=== PATIENT | female | born 1985 | race Caucasian/White ===

== ENCOUNTER 2023-03-11 11:56 | Inpatient (IN) | payer SELFPAY ==
[2023-03-11] MEDS ORDERED: Promethazine HCl 25 MG in Sodium Chloride 0.9% 50 ML IVPB SCH (12:30)
[2023-03-11 12:35] LABS: Hematocrit 45.7 % (34.9-44.5); Hemoglobin 14.6 g/dL (12.0-15.5); Mean Corpuscular HGB CONC 31.9 g/dL (32.0-36.0); Mean Corpuscular Hemoglobin 30.8 pg (27.0-33.0); Mean Corpuscular Volume 96.4 fl (81.6-98.3); Mean Platelet Volume 9.2 fl (7.4-10.4); Platelet Count 530 10x3/uL (150-450); RBC Distribution Width 13.7 % (11.5-14.5); Red Blood Cell (RBC) Count 4.74 10x6/uL (3.90-5.03)
[2023-03-11 12:42] LABS: MDiff Complete? YES
[2023-03-11 12:51] LABS: BHCG - Serum Negative (NEGATIVE); Pregs Control Background? CLEAR/WHITE (CLR/WHITE); Pregs Control Bar Appear? YES (CONTROL BAR)
[2023-03-11 12:54] LABS: ALT (SGPT) 33 U/L (8-55); AST (SGOT) 44 U/L (5-34); Albumin 4.9 g/dL (3.5-5.0); Alkaline Phosphatase 67 U/L (40-110); BUN (Urea Nitrogen) 15 mg/dL (7.0-18.7); Band 2 % (5-11); Bilirubin, Total 0.2 mg/dL (0.2-1.2); CK (CPK) 42 U/L (29-168); Calc. Creatinine Clearance 0 mL/min (70-130); Chloride 110 mmol/L (98-107); Estimated GFR 54; Globulin 3.7 g/dL (2.4-3.5); Glucose 372 mg/dL (70-105); Lipase 26 U/L (8-78); Lymphocytes 12 % (21-51); Magnesium 2.2 mg/dL (1.6-2.6); Monocytes 2 % (0-10); Neutrophil 84 % (42-75); Protein, Total 8.6 g/dL (6.0-8.3); Sodium 138 mmol/L (136-145)
[2023-03-11 12:55] LABS: Platelet Adequacy Comment Appears Increased; RBC Morph Comment Within Normal Limits
[2023-03-11 13:26] LABS: Carbon Dioxide Less than 8 mmol/L (22-29)
[2023-03-11] MEDS ORDERED: D5 1/2 NS w/20 mEq KCL 1,000 ML ONE (13:38)
[2023-03-11] MEDS ORDERED: INSULIN REGULAR IN 0.9 % NACL 100 UNITS/100 ML BAG ONE (13:39)
[2023-03-11] MEDS ORDERED: Electrolyte Replacement Protocol 1 EACH IVPB PRN (13:47)
[2023-03-11] MEDS ORDERED: NS 0.9% w/ 20 MEQ KCL 1,000 ML IV PRN ×2 (13:47)
[2023-03-11] MEDS ORDERED: Dextrose 5 %-0.45 % NaCl 1,000 ML IV PRN (13:47)
[2023-03-11] MEDS ORDERED: Sodium Chloride 0.9% 1,000 ML IV PRN ×4 (13:47)
[2023-03-11] MEDS ORDERED: Acetaminophen 325 MG TAB PO PRN (13:47)
[2023-03-11] MEDS ORDERED: Dextrose 50% Abboject 50 ML SYRINGE SLOW IVP PRN (13:47)
[2023-03-11 13:54] LABS: Actual Bicarbonate (HCO3v) 6.8 mEq/L (22-28); Base Excess -25.1 mEq/L (-2 - +2); Chloride (VBG) 110 mmol/L (98-106); Hematocrit-VBG 47 % (36.0-47.0); Potassium (VBG) 4.96 mmol/L (3.70-5.30); Puncture Site Other Site; RapidComm Collect By CBN; Sodium 143.4 mmol/L (133-146); pH (venous) 6.933 (7.32-7.43)
[2023-03-11] MEDS ORDERED: INSULIN REGULAR IN 0.9 % NACL 100 UNITS in Premix Bag 1 BAG IVPB SCH (14:45)
[2023-03-11 14:50] LABS: Bilirubin Neg (Negative); Blood, Urine 25 (Negative); Clarity Clear (Clear); Glucose, Urine (Dipstick) >=1000 mg/dL (Negative); Ketone, Urine 150 mg/dL (Negative); Leukocyte Negative (Negative); Nitrite Negative (Negative); Protein, Urine (Dipstick) 30 mg/dl (Neg-Trace); Urobilinogen Normal mg/dL (Less than 2)
[2023-03-11 14:57] LABS: BUN (Urea Nitrogen) 13 mg/dL (7.0-18.7); Calc. Creatinine Clearance 0 mL/min (70-130); Calcium 8.8 mg/dL (7.8-10.44); Chloride 115 mmol/L (98-107); Estimated GFR 58; Glucose 274 mg/dL (70-105); Potassium 5.2 mmol/L (3.5-5.1); Sodium 139 mmol/L (136-145)
[2023-03-11 14:59] LABS: Carbon Dioxide Less than 8 mmol/L (22-29)
[2023-03-11 15:04] LABS: Troponin I Less than 0.010 ng/mL (< 0.028)
[2023-03-11 15:14] LABS: Bacteria/HPF Rare-Few HPF (None Seen); CAUTI Indications for Culture Pelvic or flank pain; RBC/HPF 0-3 HPF (0-3); Squamous Epithelial 0-3 HPF (0-3); Urine Culture Reflex No No; WBC/HPF 0-3 HPF (0-3)
[2023-03-11 15:38] LABS: Lactic Acid 2.4 mmol/L (0.5-2.2)
[2023-03-11] MEDS ORDERED: NOREPINEPHRINE 8 MG/250 ML-D5W 250 ML ONE (16:00)
[2023-03-11 17:55] LABS: Bilirubin Neg (Negative); Blood, Urine 50 (Negative); Clarity Clear (Clear); Glucose, Urine (Dipstick) >=1000 mg/dL (Negative); Ketone, Urine 150 mg/dL (Negative); Leukocyte Negative (Negative); Nitrite Negative (Negative); Protein, Urine (Dipstick) 30 mg/dl (Neg-Trace); Urobilinogen Normal mg/dL (Less than 2)
[2023-03-11 18:02] LABS: Bacteria/HPF Rare-Few HPF (None Seen); CAUTI Indications for Culture Pelvic or flank pain; Mucous/LPF Rare LPF (<2+); Squamous Epithelial 0-3 HPF (0-3); Transitional Epithelial 0-3 HPF (None Seen); WBC/HPF 0-3 HPF (0-3)
[2023-03-11 18:03] LABS: Urine Culture Reflex No No
[2023-03-11] MEDS: Ondansetron PF 4 MG/2 ML Vial IVP PRN (18:07)
[2023-03-11 18:13] LABS: BUN (Urea Nitrogen) 11 mg/dL (7.0-18.7); Calc. Creatinine Clearance 56 mL/min (70-130); Calcium 8.6 mg/dL (7.8-10.44); Chloride 115 mmol/L (98-107); Estimated GFR 68; Glucose 190 mg/dL (70-105); Sodium 137 mmol/L (136-145)
[2023-03-11 18:20] LABS: Carbon Dioxide Less than 8 mmol/L (22-29); Potassium 4.8 mmol/L (3.5-5.1)
[2023-03-11] MEDS: D5 1/2 NS w/20 mEq KCL 1,000 ML IV PRN ×2 (19:45→23:40)
[2023-03-11 21:27] LABS: Anion Gap 16 mmol/L (10-20); BUN (Urea Nitrogen) 8 mg/dL (7.0-18.7); Calc. Creatinine Clearance 65 mL/min (70-130); Calcium 8.3 mg/dL (7.8-10.44); Chloride 113 mmol/L (98-107); Estimated GFR 81; Glucose 188 mg/dL (70-105); Potassium 3.8 mmol/L (3.5-5.1); Sodium 134 mmol/L (136-145)
[2023-03-11 21:30] LABS: Troponin I Less than 0.010 ng/mL (< 0.028)
[2023-03-11 21:34] LABS: Carbon Dioxide 9 mmol/L (22-29)
[2023-03-11] MEDS: Famotidine/PF 20 mg/2ml Vial SLOW IVP SCH (21:55)
[2023-03-12] MEDS: D5 1/2 NS w/20 mEq KCL 1,000 ML IV PRN (03:37)
[2023-03-12 03:54] LABS: #Monocytes 1.3 10x3/uL (0.0-1.1); #Neutrophils 12.9 10x3/uL (1.5-8.4); %Basophils 0.2 % (0.0-2.0); %Eosinophils 0.1 % (0.0-6.0); %Lymphocytes 17.7 % (18.0-47.0); %Monocytes 7.3 % (0.0-10.0); %Neutrophils 74.3 % (40.0-75.0); Hematocrit 36.1 % (34.9-44.5); Mean Corpuscular HGB CONC 33.2 g/dL (32.0-36.0); Mean Corpuscular Hemoglobin 30.4 pg (27.0-33.0); Mean Corpuscular Volume 91.4 fl (81.6-98.3); Mean Platelet Volume 9.1 fl (7.4-10.4); Platelet Count 437 10x3/uL (150-450); RBC Distribution Width 13.8 % (11.5-14.5); Red Blood Cell (RBC) Count 3.95 10x6/uL (3.90-5.03); White Blood Cell (WBC) Count 17.4 10x3/uL (3.5-10.5)
[2023-03-12 03:59] LABS: Actual Bicarbonate (HCO3v) 12.6 mEq/L (22-28); Base Excess -10.9 mEq/L (-2 - +2); Calcium, Ionized (venous) 1.16 mmol/L (1.16-1.32); Chloride (VBG) 110 mmol/L (98-106); Hematocrit-VBG 38 % (36.0-47.0); Hemoglobin (Hb) 12.9 g/dL (11.7-15.5); Potassium (VBG) 3.57 mmol/L (3.70-5.30); Puncture Site Other Site; RapidComm Collect By CBL; Sodium 133.1 mmol/L (133-146)
[2023-03-12 04:06] LABS: Anion Gap 12 mmol/L (10-20); BUN (Urea Nitrogen) 6 mg/dL (7.0-18.7); Calc. Creatinine Clearance 74 mL/min (70-130); Calcium 8.3 mg/dL (7.8-10.44); Carbon Dioxide 11 mmol/L (22-29); Cardiac Risk 4.4 (Less than 4.5); Chloride 113 mmol/L (98-107); Cholesterol 184 mg/dl (< 200 Desired); Estimated GFR 94; Glucose 154 mg/dL (70-105); HDL Cholesterol 42 mg/dL (>60 Neg Risk); LDL Cholesterol, Calculated 122 mg/dL; Magnesium 1.7 mg/dL (1.6-2.6); Potassium 3.4 mmol/L (3.5-5.1); Sodium 133 mmol/L (136-145); Triglycerides 100 mg/dL (Less than 150)
[2023-03-12 04:09] LABS: ALT (SGPT) 20 U/L (8-55); AST (SGOT) 22 U/L (5-34); Albumin 3.7 g/dL (3.5-5.0); Alkaline Phosphatase 43 U/L (40-110); Bilirubin, Direct 0.1 mg/dL (0.1-0.3); Bilirubin, Total 0.3 mg/dL (0.2-1.2); Protein, Total 6.1 g/dL (6.0-8.3)
[2023-03-12 04:15] LABS: Troponin I Less than 0.010 ng/mL (< 0.028)
[2023-03-12] MEDS ORDERED: Magnesium 2 GM/50 ML(in water) 2 GM in Premix Bag 1 BAG IVPB SCH (04:15)
[2023-03-12] MEDS: Potassium Chloride 20 MEQ in Premix Bag 1 BAG IVPB SCH ×2 (04:37→07:17)
[2023-03-12] MEDS ORDERED: Dextrose 5% in Water 1,000 ML IV PRN (07:21)
[2023-03-12] MEDS ORDERED: Glucagon 1 MG/ML KIT IM PRN (07:21)
[2023-03-12] MEDS ORDERED: Dextrose 50% Abboject 50 ML SYRINGE SLOW IVP PRN (07:21)
[2023-03-12] MEDS ORDERED: HumaLOG 300 UNITS/3 ML VIAL SC PRN ×2 (07:21→16:45)
[2023-03-12] MEDS: Famotidine/PF 20 mg/2ml Vial SLOW IVP SCH (07:50)
[2023-03-12 08:17] VITALS: BMI 20.5
[2023-03-12 08:19] LABS: Free T4 (Free Thyroxine) 0.96 ng/dL (0.70-1.48)
[2023-03-12] MEDS ORDERED: HumuLIN 70/30 (300 UNITS/3 ML VIAL) SC SCH (09:00)
[2023-03-12] MEDS ORDERED: Insulin NPH Human Isophane 100 UNITS/ML (10 ML VIAL) SC SCH ×2 (09:00→21:00)
[2023-03-12] MEDS ORDERED: Potassium Chloride 20 MEQ TAB PO SCH (09:15)
[2023-03-12] MEDS: Ondansetron PF 4 MG/2 ML Vial IVP PRN ×2 (09:35→16:09)
[2023-03-12] MEDS: HumaLOG 300 UNITS/3 ML VIAL SC PRN ×2 (12:09→16:09)
[2023-03-12 14:21] LABS: Hemoglobin A1c 12.5 % (4.0-6.0)
[2023-03-12] MEDS ORDERED: Lactated Ringer's 1,000 ML IV SCH (16:30)
[2023-03-12] MEDS: Famotidine 20 MG TAB PO SCH (21:32)
[2023-03-13 03:34] LABS: #Basophils 0.1 10x3/uL (0.0-0.2); #Eosinphils 0.1 10x3/uL (0.0-0.5); #Monocytes 0.7 10x3/uL (0.0-1.1); #Neutrophils 4.6 10x3/uL (1.5-8.4); %Basophils 0.7 % (0.0-2.0); %Lymphocytes 36.3 % (18.0-47.0); %Monocytes 8.3 % (0.0-10.0); %Neutrophils 53.5 % (40.0-75.0); Hematocrit 36.7 % (34.9-44.5); Hemoglobin 12.5 g/dL (12.0-15.5); Mean Corpuscular HGB CONC 34.1 g/dL (32.0-36.0); Mean Corpuscular Hemoglobin 30.3 pg (27.0-33.0); Mean Corpuscular Volume 89.1 fl (81.6-98.3); Mean Platelet Volume 8.9 fl (7.4-10.4); Platelet Count 349 10x3/uL (150-450); Red Blood Cell (RBC) Count 4.12 10x6/uL (3.90-5.03); White Blood Cell (WBC) Count 8.6 10x3/uL (3.5-10.5)
[2023-03-13 03:42] LABS: Anion Gap 11 mmol/L (10-20); BUN (Urea Nitrogen) 4 mg/dL (7.0-18.7); Calc. Creatinine Clearance 104 mL/min (70-130); Calcium 8.3 mg/dL (7.8-10.44); Carbon Dioxide 19 mmol/L (22-29); Chloride 111 mmol/L (98-107); Estimated GFR 117; Glucose 74 mg/dL (70-105); Magnesium 1.8 mg/dL (1.6-2.6); Potassium 3.1 mmol/L (3.5-5.1); Sodium 138 mmol/L (136-145)
[2023-03-13] MEDS ORDERED: Magnesium 2 GM/50 ML(in water) 2 GM in Premix Bag 1 BAG IVPB SCH (03:45)
[2023-03-13] MEDS ORDERED: Potassium Chloride 20 MEQ TAB PO SCH (03:45)
[2023-03-13] MEDS: Famotidine 20 MG TAB PO SCH (07:47)
[2023-03-13] MEDS ORDERED: Insulin NPH Human Isophane 100 UNITS/ML (10 ML VIAL) SC SCH (09:00)
[2023-03-13 09:06] VITALS: BP 116/72; TEMP 98.4
== END 2023-03-13 10:39 | disposition home or self-care (01) | DRG 638 ==
LOC: SUATTDRO 11:56 → CSHERS 11:56 → CSHICU 13:47
PROVIDERS: ADMIT Family Medicine; ATTEND Family Medicine
DX: E10.10 Type 1 diabetes mellitus with ketoacidosis without coma (principal); N17.9 Acute kidney failure, unspecified; F17.210 Nicotine dependence, cigarettes, uncomplicated; F10.90 Alcohol use, unspecified, uncomplicated; D72.829 Elevated white blood cell count, unspecified; F12.10 Cannabis abuse, uncomplicated; Z79.4 Long term (current) use of insulin; Z98.51 Tubal ligation status; Z71.89 Other specified counseling
CPT/HCPCS: 36415; 36416; 71045; 80048; 80053; 80061; 80076; 81001; 82010; 82550; 82805; 83036; 83605; 83690; 83735; 83930; 84439; 84443; 84481; 84484; 84703; 85025; 93005; J1650; J1815; J2405; J2550; J3475; J3480; J7120; J7999; S0028

== ENCOUNTER 2023-04-14 11:16 | Inpatient (IN) | payer SELFPAY ==
[2023-04-14] MEDS ORDERED: Ondansetron PF 4 MG/2 ML Vial ONE (12:00)
[2023-04-14 12:32] LABS: Actual Bicarbonate (HCO3v) 3.3 mEq/L (22-28); Base Excess -31.2 mEq/L (-2 - +2); Calcium, Ionized (venous) 1.39 mmol/L (1.16-1.32); Chloride (VBG) 104 mmol/L (98-106); Hematocrit-VBG 47 % (36.0-47.0); Potassium (VBG) 6.15 mmol/L (3.70-5.30); Puncture Site Other Site; Sodium 137.2 mmol/L (133-146)
[2023-04-14 12:33] LABS: Hemoglobin 15.7 g/dL (12.0-15.5); Mean Corpuscular HGB CONC 30.8 g/dL (32.0-36.0); Mean Corpuscular Hemoglobin 31.2 pg (27.0-33.0); Mean Corpuscular Volume 101.4 fl (81.6-98.3); Mean Platelet Volume 10.1 fl (7.4-10.4); Platelet Count 433 10x3/uL (150-450); RBC Distribution Width 13.4 % (11.5-14.5); Red Blood Cell (RBC) Count 5.03 10x6/uL (3.90-5.03); White Blood Cell (WBC) Count 31.5 10x3/uL (3.5-10.5)
[2023-04-14] MEDS ORDERED: Sodium Bicarb 50 MEQ/50 ML Abboject 8.4% SYRINGE ONE (12:39)
[2023-04-14] MEDS ORDERED: Insulin Regular 300 UNITS/3 ML VIAL ONE (12:39)
[2023-04-14 12:42] LABS: Acetaminophen Less than 10 mcg/mL (10.0-30.0); Alcohol Less than 10.0 mg/dL (Less than 10); Salicylate Less than 8.0 mg/dL (15.0-30.0)
[2023-04-14 12:45] LABS: BHCG - Serum Negative (NEGATIVE); Pregs Control Background? CLEAR/WHITE (CLR/WHITE); Pregs Control Bar Appear? YES (CONTROL BAR)
[2023-04-14 12:49] LABS: Troponin I Less than 0.010 ng/mL (< 0.028)
[2023-04-14 12:49] LABS: ALT (SGPT) 33 U/L (8-55); AST (SGOT) 40 U/L (5-34); Albumin 5.1 g/dL (3.5-5.0); Alkaline Phosphatase 72 U/L (40-110); BUN (Urea Nitrogen) 16 mg/dL (7.0-18.7); Bilirubin, Total 0.2 mg/dL (0.2-1.2); Calc. Creatinine Clearance 0 mL/min (70-130); Calcium 9.5 mg/dL (7.8-10.44); Chloride 104 mmol/L (98-107); Estimated GFR 38; Globulin 3.2 g/dL (2.4-3.5); Lipase 31 U/L (8-78); Protein, Total 8.3 g/dL (6.0-8.3); Sodium 133 mmol/L (136-145)
[2023-04-14 12:53] LABS: Carbon Dioxide Less than 8 mmol/L (22-29); Glucose 589 mg/dL (70-105); Potassium 6.3 mmol/L (3.5-5.1)
[2023-04-14 12:59] LABS: MDiff Complete? YES
[2023-04-14 13:02] LABS: Lymphocytes 7 % (21-51); Monocytes 6 % (0-10); Myelocyte 1 % (0-0); Neutrophil 86 % (42-75)
[2023-04-14 13:05] LABS: Platelet Adequacy Comment Appears Adequate; Poikilocytosis SLIGHT = 6-15 cells (100X) (0-5/hpf); Vacuoles SLIGHT
[2023-04-14] MEDS ORDERED: INSULIN REGULAR IN 0.9 % NACL 100 UNITS/100 ML BAG ONE (13:28)
[2023-04-14] MEDS ORDERED: Sodium Chloride 0.9% 1,000 ML IV PRN ×8 (14:45→15:45)
[2023-04-14] MEDS ORDERED: ADD ELECTROLYTE REPLACEMENT SET TO PROFILE PO SCH (14:45)
[2023-04-14] MEDS ORDERED: Dextrose 5% in Water 1,000 ML IV PRN (14:45)
[2023-04-14] MEDS ORDERED: D5 1/2 NS w/20 mEq KCL 1,000 ML IV PRN (14:45)
[2023-04-14] MEDS ORDERED: Dextrose 50% Abboject 50 ML SYRINGE SLOW IVP PRN ×2 (14:45→15:45)
[2023-04-14] MEDS ORDERED: Glucagon 1 MG/ML KIT IM PRN (14:45)
[2023-04-14] MEDS ORDERED: NS 0.9% w/ 20 MEQ KCL 1,000 ML/1,000 ML BAG IV PRN ×2 (14:45)
[2023-04-14] MEDS ORDERED: HUMULIN R 100 UNITS in Sodium Chloride 0.9% 100 ML IVPB SCH ×2 (14:45→15:45)
[2023-04-14] MEDS ORDERED: Electrolyte Replacement Protocol FS PRN (14:45)
[2023-04-14] MEDS ORDERED: Dextrose 5 %-0.45 % NaCl 1,000 ML IV PRN ×2 (14:45→15:45)
[2023-04-14 15:25] LABS: Lactic Acid 3.8 mmol/L (0.5-2.2)
[2023-04-14] MEDS ORDERED: Acetaminophen 500 MG TAB PO PRN (15:45)
[2023-04-14] MEDS ORDERED: Ondansetron ODT 4 MG TAB PO PRN (15:45)
[2023-04-14] MEDS ORDERED: Electrolyte Replacement Protocol 1 EACH IVPB SCH (15:45)
[2023-04-14] MEDS ORDERED: NS 0.9% w/ 20 MEQ KCL 1,000 ML IV PRN ×2 (15:45)
[2023-04-14 16:34] LABS: BUN (Urea Nitrogen) 13 mg/dL (7.0-18.7); Calc. Creatinine Clearance 53 mL/min (70-130); Calcium 7.9 mg/dL (7.8-10.44); Carbon Dioxide Less than 8 mmol/L (22-29); Chloride 112 mmol/L (98-107); Estimated GFR 63; Glucose 196 mg/dL (70-105); Potassium 3.9 mmol/L (3.5-5.1); Sodium 135 mmol/L (136-145)
[2023-04-14] MEDS: D5 1/2 NS w/20 mEq KCL 1,000 ML IV PRN ×2 (17:31→21:32)
[2023-04-14] MEDS: Ondansetron PF 4 MG/2 ML Vial IVP PRN (17:41)
[2023-04-14] MEDS ORDERED: SODIUM BICARBONATE IV SCH (17:45)
[2023-04-14] MEDS ORDERED: SODIUM CHLORIDE 0.9% IV SCH (17:45)
[2023-04-14 19:59] LABS: Anion Gap 13 mmol/L (10-20); BUN (Urea Nitrogen) 9 mg/dL (7.0-18.7); Calc. Creatinine Clearance 65 mL/min (70-130); Calcium 7.9 mg/dL (7.8-10.44); Carbon Dioxide 11 mmol/L (22-29); Chloride 110 mmol/L (98-107); Estimated GFR 81; Glucose 193 mg/dL (70-105); Potassium 3.2 mmol/L (3.5-5.1); Sodium 131 mmol/L (136-145)
[2023-04-14] MEDS: Famotidine/PF 20 mg/2ml Vial SLOW IVP SCH (20:10)
[2023-04-15 00:02] LABS: Anion Gap 10 mmol/L (10-20); BUN (Urea Nitrogen) 8 mg/dL (7.0-18.7); Calc. Creatinine Clearance 76 mL/min (70-130); Calcium 7.9 mg/dL (7.8-10.44); Carbon Dioxide 16 mmol/L (22-29); Chloride 110 mmol/L (98-107); Estimated GFR 96; Glucose 161 mg/dL (70-105); Potassium 3.1 mmol/L (3.5-5.1); Sodium 133 mmol/L (136-145)
[2023-04-15] MEDS: D5 1/2 NS w/20 mEq KCL 1,000 ML IV SCH ×2 (01:09→02:22)
[2023-04-15] MEDS ORDERED: INSULIN REGULAR IN 0.9 % NACL 100 UNITS in Premix Bag 1 BAG IVPB SCH (01:15)
[2023-04-15] MEDS ORDERED: Potassium Chloride 20 MEQ TAB PO SCH ×2 (01:30→04:30)
[2023-04-15 03:33] LABS: Hematocrit 32.8 % (34.9-44.5); Hemoglobin 11.3 g/dL (12.0-15.5); Mean Corpuscular HGB CONC 34.5 g/dL (32.0-36.0); Mean Corpuscular Hemoglobin 31.2 pg (27.0-33.0); Mean Corpuscular Volume 90.6 fl (81.6-98.3); Mean Platelet Volume 9.5 fl (7.4-10.4); Platelet Count 266 10x3/uL (150-450); Red Blood Cell (RBC) Count 3.62 10x6/uL (3.90-5.03); White Blood Cell (WBC) Count 19.9 10x3/uL (3.5-10.5)
[2023-04-15 03:36] LABS: Anion Gap 9 mmol/L (10-20); BUN (Urea Nitrogen) 7 mg/dL (7.0-18.7); Calc. Creatinine Clearance 79 mL/min (70-130); Carbon Dioxide 17 mmol/L (22-29); Chloride 111 mmol/L (98-107); Estimated GFR 101; Glucose 173 mg/dL (70-105); Potassium 3.5 mmol/L (3.5-5.1); Sodium 133 mmol/L (136-145)
[2023-04-15] MEDS ORDERED: Glucagon 1 MG/ML KIT IM PRN (04:15)
[2023-04-15] MEDS ORDERED: Dextrose 50% Abboject 50 ML SYRINGE IVP PRN (04:15)
[2023-04-15] MEDS ORDERED: Dextrose 5% in Water 1,000 ML IV PRN (04:15)
[2023-04-15 04:23] VITALS: BMI 20.1
[2023-04-15] MEDS ORDERED: Lantus 1000 UNITS/10 ML VIAL SC SCH ×2 (04:30→21:00)
[2023-04-15] MEDS ORDERED: Magnesium 2 GM/50 ML(in water) 2 GM in Premix Bag 1 BAG IVPB SCH (06:00)
[2023-04-15] MEDS: Famotidine/PF 20 mg/2ml Vial SLOW IVP SCH (07:30)
[2023-04-15] MEDS: Ondansetron PF 4 MG/2 ML Vial IVP PRN ×2 (07:37→13:05)
[2023-04-15 08:29] LABS: Anion Gap 15 mmol/L (10-20); BUN (Urea Nitrogen) 6 mg/dL (7.0-18.7); Calc. Creatinine Clearance 84 mL/min (70-130); Calcium 8.2 mg/dL (7.8-10.44); Carbon Dioxide 13 mmol/L (22-29); Chloride 109 mmol/L (98-107); Estimated GFR 101; Glucose 122 mg/dL (70-105); Potassium 3.9 mmol/L (3.5-5.1); Sodium 133 mmol/L (136-145)
[2023-04-15 10:33] LABS: Potassium 4.6 mmol/L (3.5-5.1)
[2023-04-15] MEDS: HumaLOG 300 UNITS/3 ML VIAL SC PRN ×3 (11:12→21:27)
[2023-04-15] MEDS ORDERED: Electrolyte Replacement Protocol FS PRN (12:15)
[2023-04-15] MEDS: Famotidine 20 MG TAB PO SCH (21:24)
[2023-04-16] MEDS: HumaLOG 300 UNITS/3 ML VIAL SC PRN (00:31)
[2023-04-16 02:44] LABS: #Basophils 0.1 10x3/uL (0.0-0.2); #Eosinphils 0.1 10x3/uL (0.0-0.5); #Monocytes 0.9 10x3/uL (0.0-1.1); #Neutrophils 6.2 10x3/uL (1.5-8.4); %Basophils 0.7 % (0.0-2.0); %Eosinophils 0.7 % (0.0-6.0); %Lymphocytes 31.5 % (18.0-47.0); %Monocytes 8.2 % (0.0-10.0); %Neutrophils 58.6 % (40.0-75.0); Hematocrit 34.6 % (34.9-44.5); Mean Corpuscular HGB CONC 34.7 g/dL (32.0-36.0); Mean Corpuscular Hemoglobin 31.1 pg (27.0-33.0); Mean Corpuscular Volume 89.6 fl (81.6-98.3); Platelet Count 261 10x3/uL (150-450); RBC Distribution Width 13.5 % (11.5-14.5); Red Blood Cell (RBC) Count 3.86 10x6/uL (3.90-5.03); White Blood Cell (WBC) Count 10.6 10x3/uL (3.5-10.5)
[2023-04-16 02:56] LABS: Phosphorus 1.6 mg/dL (2.3-4.7)
[2023-04-16 02:59] LABS: Anion Gap 10 mmol/L (10-20); BUN (Urea Nitrogen) 6 mg/dL (7.0-18.7); Calc. Creatinine Clearance 96 mL/min (70-130); Calcium 8.7 mg/dL (7.8-10.44); Carbon Dioxide 25 mmol/L (22-29); Chloride 104 mmol/L (98-107); Estimated GFR 116; Glucose 148 mg/dL (70-105); Magnesium 1.8 mg/dL (1.6-2.6); Potassium 2.9 mmol/L (3.5-5.1); Sodium 136 mmol/L (136-145)
[2023-04-16 04:02] LABS: Magnesium 1.9 mg/dL (1.6-2.6); Phosphorus 2.5 mg/dL (2.3-4.7)
[2023-04-16] MEDS: PHOS-NAK 1 PKT PACK PO SCH ×2 (05:42→08:46)
[2023-04-16] MEDS: Potassium Chloride 20 MEQ TAB PO SCH ×2 (05:43→08:46)
[2023-04-16] MEDS ORDERED: Magnesium 2 GM/50 ML(in water) 2 GM in Premix Bag 1 BAG IVPB SCH (06:00)
[2023-04-16] MEDS ORDERED: Potassium Chloride 20 MEQ TAB PO SCH ×2 (06:00→12:00)
[2023-04-16] MEDS: Ondansetron PF 4 MG/2 ML Vial IVP PRN (06:24)
[2023-04-16] MEDS ORDERED: Lantus 1000 UNITS/10 ML VIAL SC SCH (08:00)
[2023-04-16] MEDS: Famotidine 20 MG TAB PO SCH (08:46)
[2023-04-16 14:18] VITALS: BP 112/69; TEMP 99.8
== END 2023-04-16 12:19 | disposition home or self-care (01) | DRG 638 ==
LOC: CSHERS 11:16 → CSHIMCU 13:12 → CSHTELE 04-15 17:33
PROVIDERS: ADMIT Family Medicine; ATTEND Family Medicine
DX: E10.10 Type 1 diabetes mellitus with ketoacidosis without coma (principal); N17.9 Acute kidney failure, unspecified; E87.5 Hyperkalemia; E86.0 Dehydration; D72.828 Other elevated white blood cell count; F12.10 Cannabis abuse, uncomplicated; Z98.51 Tubal ligation status
CPT/HCPCS: 36415; 36416; 71045; 80048; 80053; 80307; 82010; 82805; 83605; 83690; 83735; 84100; 84484; 84703; 85025; 85027; 87086; 93005; 94760; 94762; J1815; J2405; J3475; J3480; J7042; J7050; Q0162; S0028

== ENCOUNTER 2023-06-08 07:48 | Inpatient (IN) | payer SELFPAY ==
[2023-06-08] MEDS ORDERED: Ondansetron PF 4 MG/2 ML Vial ONE (08:23)
[2023-06-08] MEDS ORDERED: Haloperidol Lactate 5 MG/ML VIAL ONE (08:38)
[2023-06-08 09:22] LABS: #Basophils 0.2 10x3/uL (0.0-0.2); #Monocytes 0.9 10x3/uL (0.0-1.1); #Neutrophils 17.2 10x3/uL (1.5-8.4); %Basophils 0.9 % (0.0-2.0); %Lymphocytes 15.2 % (18.0-47.0); %Monocytes 4.2 % (0.0-10.0); %Neutrophils 78.6 % (40.0-75.0); Hematocrit 48.6 % (34.9-44.5); Hemoglobin 15.5 g/dL (12.0-15.5); Mean Corpuscular HGB CONC 31.9 g/dL (32.0-36.0); Mean Corpuscular Hemoglobin 30.9 pg (27.0-33.0); Mean Platelet Volume 10.6 fl (7.4-10.4); Platelet Count 439 10x3/uL (150-450); RBC Distribution Width 13.1 % (11.5-14.5); Red Blood Cell (RBC) Count 5.01 10x6/uL (3.90-5.03); White Blood Cell (WBC) Count 21.8 10x3/uL (3.5-10.5)
[2023-06-08 09:31] LABS: ALT (SGPT) 33 U/L (8-55); AST (SGOT) 42 U/L (5-34); Albumin 4.9 g/dL (3.5-5.0); Alkaline Phosphatase 54 U/L (40-110); BUN (Urea Nitrogen) 12 mg/dL (7.0-18.7); Bilirubin, Total 0.2 mg/dL (0.2-1.2); Calc. Creatinine Clearance 0 mL/min (70-130); Calcium 9.6 mg/dL (7.8-10.44); Chloride 105 mmol/L (98-107); Estimated GFR 56; Globulin 3.8 g/dL (2.4-3.5); Lipase 25 U/L (8-78); Potassium 4.4 mmol/L (3.5-5.1); Protein, Total 8.7 g/dL (6.0-8.3); Sodium 134 mmol/L (136-145)
[2023-06-08 09:34] LABS: Carbon Dioxide Less than 8 mmol/L (22-29); Glucose 431 mg/dL (70-105)
[2023-06-08] MEDS ORDERED: Insulin Regular 300 UNITS/3 ML VIAL ONE (09:49)
[2023-06-08] MEDS ORDERED: INSULIN REGULAR IN 0.9 % NACL 100 UNITS/100 ML BAG ONE (09:49)
[2023-06-08 09:58] LABS: Bilirubin Neg (Negative); Blood, Urine 50 (Negative); Clarity Clear (Clear); Glucose, Urine (Dipstick) >=1000 mg/dL (Negative); Ketone, Urine 150 mg/dL (Negative); Leukocyte Negative (Negative); Nitrite Negative (Negative); Protein, Urine (Dipstick) 30 mg/dl (Neg-Trace); Specific Gravity, Urine 1.025 (1.005-1.030); Urobilinogen Normal mg/dL (Less than 2)
[2023-06-08 09:59] LABS: Phosphorus 4.9 mg/dL (2.3-4.7)
[2023-06-08] MEDS ORDERED: Morphine 4 MG/ML VIAL ONE (10:22)
[2023-06-08 10:23] LABS: Bacteria/HPF 1+ HPF (None Seen); CAUTI Indications for Culture Alt mental st,lethar; RBC/HPF 0-3 HPF (0-3); Renal Epithelial 0-3 HPF (None Seen); Squamous Epithelial 0-3 HPF (0-3); Transitional Epithelial 0-3 HPF (None Seen); WBC/HPF 0-3 HPF (0-3)
[2023-06-08 10:24] LABS: Actual Bicarbonate (HCO3v) 5.2 mEq/L (22-28); Base Excess -26.5 mEq/L (-2 - +2); Calcium, Ionized (venous) 1.19 mmol/L (1.16-1.32); Chloride (VBG) 104 mmol/L (98-106); Hematocrit-VBG 46 % (36.0-47.0); Hemoglobin (Hb) 15.6 g/dL (11.7-15.5); Potassium (VBG) 4.36 mmol/L (3.70-5.30); Puncture Site Other Site; Sodium 138 mmol/L (133-146); pH (venous) 6.922 (7.32-7.43)
[2023-06-08 10:25] LABS: Epithelial Cast 0-3 LPF (None Seen); Urine Culture Reflex No No
[2023-06-08] MEDS ORDERED: Sodium Bicarb 50 MEQ/50 ML Abboject 8.4% SYRINGE ONE (10:34)
[2023-06-08 10:44] LABS: Acetaminophen Less than 10 mcg/mL (10.0-30.0); Alcohol Less than 10.0 mg/dL (Less than 10); Salicylate Less than 8.0 mg/dL (15.0-30.0)
[2023-06-08 11:18] LABS: Amphetamine Not Detected (NotDetected); Barbiturates Screen Not Detected (NotDetected); Benzodiazepine Screen Not Detected (NotDetected); Cocaine Metabolite Screen Not Detected (NotDetected); Methadone Not Detected (NotDetected); Methamphetamine Not Detected (NotDetected); Opiate Screen Not Detected (NotDetected); Oxycodone Screen Not Detected (NotDetected); Phencyclidine (PCP) Not Detected (NotDetected); THC/Cannabinoid Screen Detected (NotDetected); Tricyclic Screen Not Detected (NotDetected)
[2023-06-08] MEDS ORDERED: NS 0.9% w/ 20 MEQ KCL 1,000 ML IV PRN ×2 (11:25)
[2023-06-08] MEDS ORDERED: D5 1/2 NS w/20 mEq KCL 1,000 ML IV PRN (11:25)
[2023-06-08] MEDS ORDERED: Dextrose 5 %-0.45 % NaCl 1,000 ML IV PRN (11:25)
[2023-06-08] MEDS ORDERED: Electrolyte Replacement Protocol 1 EACH IVPB SCH (11:25)
[2023-06-08] MEDS ORDERED: Sodium Chloride 0.9% 1,000 ML IV PRN ×4 (11:25)
[2023-06-08] MEDS ORDERED: Dextrose 50% Abboject 50 ML SYRINGE SLOW IVP PRN ×2 (11:25→17:11)
[2023-06-08] MEDS ORDERED: Acetaminophen 325 MG TAB PO PRN (11:28)
[2023-06-08] MEDS ORDERED: Calcium Carbonate 500 MG ChewTAB PO PRN (11:28)
[2023-06-08] MEDS ORDERED: Ondansetron PF 4 MG/2 ML Vial IVP PRN (11:28)
[2023-06-08] MEDS ORDERED: Senokot S 8.6-50 MG TAB PO PRN (11:28)
[2023-06-08] MEDS ORDERED: Ondansetron ODT 4 MG TAB PO PRN (11:28)
[2023-06-08] MEDS ORDERED: Dicyclomine 10 MG CAP PO PRN (11:30)
[2023-06-08] MEDS ORDERED: INSULIN REGULAR IN 0.9 % NACL 100 UNITS in Premix 1 BAG IVPB SCH (11:30)
[2023-06-08] MEDS ORDERED: Potassium Chloride 20 MEQ/100 ML PREMIX BAG ONE (12:05)
[2023-06-08 12:17] LABS: Pregnancy Test - Urine (BHCG) Negative (Negative)
[2023-06-08 12:18] LABS: Pregu Control Background? CLEAR/WHITE (CLR/WHITE); Pregu Control Bar Appear? YES (CONTROL BAR); Specific Gravity 1.025 (1.002-1.036)
[2023-06-08 12:43] LABS: BUN (Urea Nitrogen) 11 mg/dL (7.0-18.7); Calc. Creatinine Clearance 0 mL/min (70-130); Calcium 8.3 mg/dL (7.8-10.44); Chloride 113 mmol/L (98-107); Estimated GFR 77; Glucose 230 mg/dL (70-105); Potassium 4.5 mmol/L (3.5-5.1); Sodium 140 mmol/L (136-145)
[2023-06-08 12:56] LABS: Carbon Dioxide Less than 8 mmol/L (22-29)
[2023-06-08] MEDS ORDERED: NS 0.9% w/ 20 MEQ KCL 0 ML ONE (13:10)
[2023-06-08] MEDS ORDERED: D5 1/2 NS w/20 mEq KCL 1,000 ML ONE ×2 (13:16→17:34)
[2023-06-08] MEDS ORDERED: Dextrose 50% Abboject 50 ML SYRINGE ONE (13:20)
[2023-06-08] MEDS ORDERED: Magnesium 2 GM/50 ML(in water) 2 GM in Premix 1 BAG IVPB SCH (14:00)
[2023-06-08] MEDS ORDERED: Sodium Bicarb 50 MEQ/50 ML Abboject 8.4% SYRINGE IVP SCH (15:00)
[2023-06-08 16:50] LABS: Anion Gap 16 mmol/L (10-20); BUN (Urea Nitrogen) 8 mg/dL (7.0-18.7); Calc. Creatinine Clearance 0 mL/min (70-130); Calcium 8.4 mg/dL (7.8-10.44); Carbon Dioxide 12 mmol/L (22-29); Chloride 113 mmol/L (98-107); Estimated GFR 83; Glucose 208 mg/dL (70-105); Potassium 3.8 mmol/L (3.5-5.1); Sodium 137 mmol/L (136-145)
[2023-06-08] MEDS ORDERED: Glucagon 1 MG/ML KIT IM PRN (17:11)
[2023-06-08] MEDS ORDERED: Dextrose 5% in Water 1,000 ML IV PRN (17:11)
[2023-06-08] MEDS ORDERED: Lantus 1000 UNITS/10 ML VIAL SC SCH (17:15)
[2023-06-08] MEDS: D5 1/2 NS w/20 mEq KCL 1,000 ML IV SCH (17:25)
[2023-06-08] MEDS ORDERED: Magnesium 2 GM/50 ML BAG (IN WATER) ONE (17:34)
[2023-06-08 20:50] LABS: Anion Gap 16 mmol/L (10-20); BUN (Urea Nitrogen) 7 mg/dL (7.0-18.7); Calc. Creatinine Clearance 0 mL/min (70-130); Calcium 8.2 mg/dL (7.8-10.44); Carbon Dioxide 11 mmol/L (22-29); Chloride 111 mmol/L (98-107); Estimated GFR 99; Glucose 186 mg/dL (70-105); Potassium 3.7 mmol/L (3.5-5.1); Sodium 134 mmol/L (136-145)
[2023-06-08 21:21] LABS: Magnesium 1.7 mg/dL (1.6-2.6)
[2023-06-08 21:31] LABS: Phosphorus 1.4 mg/dL (2.3-4.7)
[2023-06-08] MEDS ORDERED: Famotidine 20 MG TAB ONE (21:44)
[2023-06-08] MEDS: Famotidine 20 MG TAB PO SCH (21:52)
[2023-06-08] MEDS: Insulin Regular 300 UNITS/3 ML VIAL SC PRN (21:53)
[2023-06-08] MEDS: Heparin 5,000 UNITS/ML VIAL SC SCH (22:00)
[2023-06-08] MEDS: Famotidine/PF 20 mg/2ml Vial SLOW IVP SCH (22:02)
[2023-06-08] MEDS ORDERED: Sodium Phosphate 15 MMOL in Sodium Chloride 0.9% 250 ML 250 ML IVPB SCH (22:15)
[2023-06-09 00:32] LABS: Anion Gap 14 mmol/L (10-20); BUN (Urea Nitrogen) 5 mg/dL (7.0-18.7); Calc. Creatinine Clearance 0 mL/min (70-130); Calcium 7.9 mg/dL (7.8-10.44); Carbon Dioxide 12 mmol/L (22-29); Chloride 111 mmol/L (98-107); Estimated GFR 104; Glucose 207 mg/dL (70-105); Magnesium 1.9 mg/dL (1.6-2.6); Potassium 3.5 mmol/L (3.5-5.1); Sodium 133 mmol/L (136-145)
[2023-06-09] MEDS ORDERED: D5 1/2 NS w/20 mEq KCL 1,000 ML ONE ×2 (00:32→07:33)
[2023-06-09] MEDS: D5 1/2 NS w/20 mEq KCL 1,000 ML IV SCH ×4 (00:32→17:29)
[2023-06-09 00:50] LABS: Phosphorus 2.5 mg/dL (2.3-4.7)
[2023-06-09] MEDS: Insulin Regular 300 UNITS/3 ML VIAL SC PRN ×3 (02:03→20:58)
[2023-06-09] MEDS ORDERED: Potassium Chloride 20 MEQ TAB PO SCH (02:15)
[2023-06-09] MEDS ORDERED: Magnesium 2 GM/50 ML(in water) 2 GM in Premix 1 BAG IVPB SCH (02:15)
[2023-06-09 02:56] LABS: #Basophils 0.1 10x3/uL (0.0-0.2); #Monocytes 1.2 10x3/uL (0.0-1.1); #Neutrophils 12.4 10x3/uL (1.5-8.4); %Basophils 0.4 % (0.0-2.0); %Eosinophils 0.1 % (0.0-6.0); %Lymphocytes 17.1 % (18.0-47.0); %Monocytes 7.5 % (0.0-10.0); %Neutrophils 74.4 % (40.0-75.0); Hematocrit 33.8 % (34.9-44.5); Hemoglobin 11.4 g/dL (12.0-15.5); Mean Corpuscular HGB CONC 33.7 g/dL (32.0-36.0); Mean Corpuscular Hemoglobin 31.5 pg (27.0-33.0); Mean Corpuscular Volume 93.4 fl (81.6-98.3); Mean Platelet Volume 9.7 fl (7.4-10.4); Platelet Count 295 10x3/uL (150-450); RBC Distribution Width 12.9 % (11.5-14.5); Red Blood Cell (RBC) Count 3.62 10x6/uL (3.90-5.03); White Blood Cell (WBC) Count 16.6 10x3/uL (3.5-10.5)
[2023-06-09 03:10] LABS: Anion Gap 13 mmol/L (10-20); BUN (Urea Nitrogen) 5 mg/dL (7.0-18.7); Calc. Creatinine Clearance 0 mL/min (70-130); Calcium 7.9 mg/dL (7.8-10.44); Carbon Dioxide 12 mmol/L (22-29); Chloride 110 mmol/L (98-107); Estimated GFR 107; Glucose 203 mg/dL (70-105); Magnesium 1.9 mg/dL (1.6-2.6); Phosphorus 2.8 mg/dL (2.3-4.7); Potassium 3.3 mmol/L (3.5-5.1); Sodium 132 mmol/L (136-145)
[2023-06-09] MEDS ORDERED: Potassium Chloride 20 MEQ TAB ONE (06:24)
[2023-06-09] MEDS ORDERED: Magnesium 2 GM/50 ML BAG (IN WATER) ONE (06:24)
[2023-06-09] MEDS ORDERED: Famotidine 20 MG TAB ONE (08:11)
[2023-06-09] MEDS: Famotidine/PF 20 mg/2ml Vial SLOW IVP SCH ×2 (08:34→20:58)
[2023-06-09] MEDS: Famotidine 20 MG TAB PO SCH ×2 (08:34→20:59)
[2023-06-09] MEDS: Heparin 5,000 UNITS/ML VIAL SC SCH ×2 (08:34→20:58)
[2023-06-09] MEDS ORDERED: Potassium Bicarbonate/Cit Ac 20 MEQ TAB PO SCH (09:00)
[2023-06-09] MEDS ORDERED: Potassium Bicarbonate/Cit Ac 20 MEQ TAB ONE (09:46)
[2023-06-09] MEDS ORDERED: Lantus 1000 UNITS/10 ML VIAL SC SCH ×2 (10:00→15:30)
[2023-06-09] MEDS ORDERED: Ondansetron ODT 4 MG TAB ONE (12:32)
[2023-06-09 14:54] LABS: Anion Gap 13 mmol/L (10-20); BUN (Urea Nitrogen) Less than 4 mg/dL (7.0-18.7); Calc. Creatinine Clearance 0 mL/min (70-130); Calcium 8.3 mg/dL (7.8-10.44); Carbon Dioxide 17 mmol/L (22-29); Chloride 106 mmol/L (98-107); Estimated GFR 94; Potassium 3.8 mmol/L (3.5-5.1); Sodium 132 mmol/L (136-145)
[2023-06-09 14:59] LABS: Glucose 404 mg/dL (70-105)
[2023-06-09 15:11] VITALS: BMI 18.9
[2023-06-09] MEDS: 1/2 NS w/KCL 20 mEq 1,000 ML IV SCH (16:01)
[2023-06-10] MEDS: 1/2 NS w/KCL 20 mEq 1,000 ML IV SCH ×3 (00:50→12:52)
[2023-06-10 04:57] LABS: #Basophils 0.1 10x3/uL (0.0-0.2); #Eosinphils 0.2 10x3/uL (0.0-0.5); #Monocytes 0.8 10x3/uL (0.0-1.1); #Neutrophils 3.4 10x3/uL (1.5-8.4); %Basophils 0.7 % (0.0-2.0); %Eosinophils 2.2 % (0.0-6.0); %Lymphocytes 42.1 % (18.0-47.0); %Monocytes 10.2 % (0.0-10.0); %Neutrophils 44.7 % (40.0-75.0); Hemoglobin 11.5 g/dL (12.0-15.5); Mean Corpuscular HGB CONC 33.8 g/dL (32.0-36.0); Mean Corpuscular Hemoglobin 30.4 pg (27.0-33.0); Mean Corpuscular Volume 89.9 fl (81.6-98.3); Mean Platelet Volume 9.8 fl (7.4-10.4); Platelet Count 262 10x3/uL (150-450); RBC Distribution Width 12.5 % (11.5-14.5); Red Blood Cell (RBC) Count 3.78 10x6/uL (3.90-5.03); White Blood Cell (WBC) Count 7.6 10x3/uL (3.5-10.5)
[2023-06-10 05:04] LABS: Anion Gap 11 mmol/L (10-20); BUN (Urea Nitrogen) 5 mg/dL (7.0-18.7); Calc. Creatinine Clearance 104 mL/min (70-130); Calcium 8.4 mg/dL (7.8-10.44); Carbon Dioxide 23 mmol/L (22-29); Chloride 105 mmol/L (98-107); Estimated GFR 120; Glucose 165 mg/dL (70-105); Magnesium 1.8 mg/dL (1.6-2.6); Potassium 3.2 mmol/L (3.5-5.1); Sodium 136 mmol/L (136-145)
[2023-06-10 05:07] LABS: Phosphorus 2.4 mg/dL (2.3-4.7)
[2023-06-10] MEDS: Insulin Regular 300 UNITS/3 ML VIAL SC PRN ×2 (07:56→09:05)
[2023-06-10] MEDS ORDERED: Potassium Chloride 20 MEQ TAB PO SCH (08:45)
[2023-06-10] MEDS ORDERED: Lantus 1000 UNITS/10 ML VIAL SC SCH ×2 (09:00)
[2023-06-10] MEDS: Famotidine 20 MG TAB PO SCH (09:03)
[2023-06-10] MEDS: Heparin 5,000 UNITS/ML VIAL SC SCH (09:03)
[2023-06-10] MEDS: Famotidine/PF 20 mg/2ml Vial SLOW IVP SCH (09:03)
[2023-06-10 10:19] VITALS: BP 118/72; TEMP 98.5
== END 2023-06-10 13:00 | disposition home or self-care (01) | DRG 638 ==
LOC: CSHERS 07:48 → CSHERHOLD 10:12 → CSHTELE 06-09 14:23
PROVIDERS: ADMIT Internal Medicine; ATTEND Hospitalist
DX: E10.10 Type 1 diabetes mellitus with ketoacidosis without coma (principal); E87.1 Hypo-osmolality and hyponatremia; N17.9 Acute kidney failure, unspecified; E10.43 Type 1 diabetes mellitus with diabetic autonomic (poly)neuropathy; K31.84 Gastroparesis; D72.829 Elevated white blood cell count, unspecified; F17.210 Nicotine dependence, cigarettes, uncomplicated; E86.0 Dehydration; Z98.51 Tubal ligation status; Z79.4 Long term (current) use of insulin; Z98.890 Other specified postprocedural states
CPT/HCPCS: 36415; 36416; 71045; 80048; 80053; 80306; 80307; 81001; 81025; 82010; 82805; 83690; 83735; 84100; 85025; 87040; 94760; J1630; J1644; J1815; J2270; J2405; J3475; J3480; J7042; J7050; J7999; Q0162; S0028

== ENCOUNTER 2023-09-19 13:28 | Inpatient (IN) | payer OTHER, SELFPAY ==
[2023-09-19] MEDS ORDERED: INSULIN REGULAR IN 0.9 % NACL 100 UNITS/100 ML BAG ONE (13:58)
[2023-09-19 14:25] LABS: Hematocrit 45.9 % (34.9-44.5); Hemoglobin 13.4 g/dL (12.0-15.5); Mean Corpuscular HGB CONC 29.2 g/dL (32.0-36.0); Mean Corpuscular Hemoglobin 29.5 pg (27.0-33.0); Mean Corpuscular Volume 100.9 fl (81.6-98.3); Mean Platelet Volume 9.8 fl (7.4-10.4); Platelet Count 726 10x3/uL (150-450); RBC Distribution Width 14.3 % (11.5-14.5); Red Blood Cell (RBC) Count 4.55 10x6/uL (3.90-5.03)
[2023-09-19 14:30] LABS: MDiff Complete? YES
[2023-09-19 14:48] LABS: Platelet Adequacy Comment Appears Increased
[2023-09-19 14:50] LABS: White Blood Cell (WBC) Count 47.8 10x3/uL (3.5-10.5)
[2023-09-19] MEDS ORDERED: Ondansetron PF 4 MG/2 ML Vial ONE (14:56)
[2023-09-19 15:01] LABS: Band 3 % (5-11); Lymphocytes 16 % (21-51); Monocytes 9 % (0-10); Neutrophil 72 % (42-75)
[2023-09-19 15:03] LABS: Hypochromia SLIGHT = 6-15 cells (100X) (0-5/hpf); Macrocytosis SLIGHT = 6-15 cells (100X) (0-5/hpf); Reflex for Review?? YES
[2023-09-19 15:05] LABS: Sodium 127 mmol/L (136-145)
[2023-09-19 15:11] LABS: ALT (SGPT) 21 U/L (8-55); AST (SGOT) 23 U/L (5-34); Albumin 4.8 g/dL (3.5-5.0); Alkaline Phosphatase 120 U/L (40-110); BUN (Urea Nitrogen) 25 mg/dL (7.0-18.7); Bilirubin, Total Less than 0.2 mg/dL (0.2-1.2); Calc. Creatinine Clearance 0 mL/min (70-130); Calcium 9.2 mg/dL (7.8-10.44); Carbon Dioxide Less than 8 mmol/L (22-29); Chloride 97 mmol/L (98-107); Critical Call Chemistry SJOS.OD AT 1508; Estimated GFR 32; Globulin 3.5 g/dL (2.4-3.5); Glucose 961 mg/dL (70-105); Potassium 7.7 mmol/L (3.5-5.1); Protein, Total 8.3 g/dL (6.0-8.3)
[2023-09-19] MEDS ORDERED: Calcium Chloride 1 GM/10 ML Abboject SYRINGE ONE (15:18)
[2023-09-19] MEDS ORDERED: cefTRIAXone (ROCEPHIN) 2 GM VIAL ONE (15:18)
[2023-09-19 15:19] LABS: Actual Bicarbonate (HCO3v) 3.9 mEq/L (22-28); Analyzer IN Cardio CS ER; Base Excess -28.4 mEq/L (-2 - +2); Calcium, Ionized (venous) 1.32 mmol/L (1.16-1.32); Chloride (VBG) 97 mmol/L (98-106); Hematocrit-VBG 44 % (36.0-47.0); Hemoglobin (Hb) 14.9 g/dL (11.7-15.5); Potassium (VBG) 7.28 mmol/L (3.70-5.30); Puncture Site Other Site; RapidComm Collect By LAB; Sodium 133 mmol/L (133-146); pH (venous) 6.882 (7.32-7.43)
[2023-09-19] MEDS ORDERED: Insulin Regular 300 UNITS/3 ML VIAL ONE (15:19)
[2023-09-19] MEDS ORDERED: Sodium Bicarb 50 mEq/50 ML VIAL ONE ×3 (15:19→16:24)
[2023-09-19] MEDS ORDERED: Albuterol 2.5 MG (3 mL) NEB ONE (15:34)
[2023-09-19 16:09] LABS: BUN (Urea Nitrogen) 24 mg/dL (7.0-18.7); Calc. Creatinine Clearance 0 mL/min (70-130); Calcium 9.3 mg/dL (7.8-10.44); Chloride 101 mmol/L (98-107); Estimated GFR 35; Sodium 130 mmol/L (136-145)
[2023-09-19 16:28] LABS: Carbon Dioxide Less than 8 mmol/L (22-29); Critical Call Chemistry NUR.PA AT 1627; Glucose 752 mg/dL (70-105); Potassium 6.6 mmol/L (3.5-5.1)
[2023-09-19 17:02] LABS: HBSAg Index 0.23 S/CO (0-0.99); Hep B Surf Ag Non-Reactive S/CO (NonReactive)
[2023-09-19] MEDS ORDERED: Electrolyte Replacement Protocol 1 EACH IVPB PRN (17:15)
[2023-09-19] MEDS ORDERED: Dextrose 5 %-0.45 % NaCl 1,000 ML IV PRN (17:15)
[2023-09-19] MEDS ORDERED: NS 0.9% w/ 20 MEQ KCL 1,000 ML IV PRN (17:15)
[2023-09-19] MEDS ORDERED: Sodium Chloride 0.9% 1,000 ML IV PRN ×4 (17:15)
[2023-09-19 18:34] LABS: Anion Gap 28 mmol/L (10-20); BUN (Urea Nitrogen) 18 mg/dL (7.0-18.7); Calc. Creatinine Clearance 0 mL/min (70-130); Calcium 8.6 mg/dL (7.8-10.44); Carbon Dioxide 12 mmol/L (22-29); Chloride 111 mmol/L (98-107); Estimated GFR 50; Glucose 375 mg/dL (70-105); Potassium 3.8 mmol/L (3.5-5.1); Sodium 147 mmol/L (136-145)
[2023-09-19] MEDS ORDERED: INSULIN REGULAR IN 0.9 % NACL 100 UNITS in Premix 1 BAG IVPB SCH (19:00)
[2023-09-19] MEDS: Sodium Bicarb 50 mEq/50 ML VIAL IVP SCH (19:09)
[2023-09-19] MEDS ORDERED: Meropenem 1 GM VIAL ONE (19:11)
[2023-09-19] MEDS: Meropenem 1 GM in Sodium Chloride 0.9% 100 ML IVPB SCH (19:17)
[2023-09-19] MEDS ORDERED: NS 0.9% w/ 20 MEQ KCL 1,000 ML ONE (19:37)
[2023-09-19] MEDS: Sodium Bicarbonate 75 MEQ in Sodium Chloride 0.45% 1,000 ML IV SCH (20:27)
[2023-09-19] MEDS: NS 0.9% w/ 20 MEQ KCL 1,000 ML IV PRN (20:27)
[2023-09-19] MEDS ORDERED: D5 1/2 NS w/20 mEq KCL 1,000 ML ONE (20:31)
[2023-09-19] MEDS: D5 1/2 NS w/20 mEq KCL 1,000 ML IV PRN (20:34)
[2023-09-19] MEDS ORDERED: Morphine 2 MG/ML VIAL ONE (21:58)
[2023-09-19] MEDS: Morphine 2 MG/ML VIAL SLOW IVP PRN (21:59)
[2023-09-19] MEDS: Dextrose 50% Abboject 50 ML SYRINGE SLOW IVP PRN (22:00)
[2023-09-19] MEDS ORDERED: Meropenem 1 GM in Sodium Chloride 0.9% 100 ML IVPB SCH (22:00)
[2023-09-19 22:38] LABS: Anion Gap 12 mmol/L (10-20); BUN (Urea Nitrogen) 13 mg/dL (7.0-18.7); Calc. Creatinine Clearance 0 mL/min (70-130); Calcium 7.8 mg/dL (7.8-10.44); Carbon Dioxide 26 mmol/L (22-29); Chloride 109 mmol/L (98-107); Estimated GFR 85; Glucose 130 mg/dL (70-105); Sodium 144 mmol/L (136-145)
[2023-09-19 22:53] VITALS: BMI 21.1
[2023-09-20 00:01] LABS: Hep B Core Total Ab Non-Reactive (NonReactive); Hep B Core Total Index 0.12 S/CO (0-0.79); Hep C IgG Ab Non-Reactive S/CO (NonReactive); Hep C Index 0.11 S/CO (0-0.79)
[2023-09-20 00:11] LABS: Hep B Surf AB Reactive (NonReactive)
[2023-09-20] MEDS: Meropenem 1 GM in Sodium Chloride 0.9% 100 ML IVPB SCH ×2 (00:24→06:31)
[2023-09-20 02:36] LABS: Anion Gap 11 mmol/L (10-20); BUN (Urea Nitrogen) 12 mg/dL (7.0-18.7); Calc. Creatinine Clearance 77 mL/min (70-130); Carbon Dioxide 24 mmol/L (22-29); Chloride 109 mmol/L (98-107); Estimated GFR 86; Glucose 181 mg/dL (70-105); Magnesium 1.7 mg/dL (1.6-2.6); Potassium 3.4 mmol/L (3.5-5.1); Sodium 141 mmol/L (136-145)
[2023-09-20 02:46] LABS: Critical Call Chemistry NUR.TJ9 @0244; Phosphorus 1.5 mg/dL (2.3-4.7)
[2023-09-20 07:11] LABS: Bilirubin Neg (Negative); Blood, Urine Negative (Negative); Glucose, Urine (Dipstick) >=1000 mg/dL (Negative); Ketone, Urine 50 mg/dL (Negative); Leukocyte Negative (Negative); Nitrite Negative (Negative); Protein, Urine (Dipstick) Negative (Neg-Trace); Specific Gravity, Urine 1.015 (1.005-1.030); Urobilinogen Normal mg/dL (Less than 2)
[2023-09-20 07:22] LABS: Clarity Slightly Cloudy (Clear)
[2023-09-20 07:23] LABS: CAUTI Indications for Culture Fever or rigors; RBC/HPF 0-3 HPF (0-3); Squamous Epithelial 0-3 HPF (0-3)
[2023-09-20 07:24] LABS: Bacteria/HPF Rare-Few HPF (None Seen); Yeast-Budding Rare HPF (None Seen)
[2023-09-20 07:25] LABS: Urine Culture Reflex No No
[2023-09-20] MEDS: Potassium Chloride 20 MEQ TAB PO SCH (08:15)
[2023-09-20] MEDS: Magnesium 2 GM/50 ML(in water) 2 GM in Premix 1 BAG IVPB SCH (08:16)
[2023-09-20] MEDS: PHOS-NAK 1 PKT PACK PO SCH (08:16)
[2023-09-20 08:31] LABS: #Monocytes 1.8 10x3/uL (0.0-1.1); #Neutrophils 15.7 10x3/uL (1.5-8.4); %Basophils 0.2 % (0.0-2.0); %Eosinophils 0.1 % (0.0-6.0); %Lymphocytes 8.9 % (18.0-47.0); %Neutrophils 80.6 % (40.0-75.0); Hematocrit 29.4 % (34.9-44.5); Hemoglobin 10.2 g/dL (12.0-15.5); Mean Corpuscular HGB CONC 34.7 g/dL (32.0-36.0); Mean Corpuscular Hemoglobin 30.3 pg (27.0-33.0); Mean Corpuscular Volume 87.2 fl (81.6-98.3); Mean Platelet Volume 9.4 fl (7.4-10.4); Platelet Count 400 10x3/uL (150-450); RBC Distribution Width 13.9 % (11.5-14.5); Red Blood Cell (RBC) Count 3.37 10x6/uL (3.90-5.03); White Blood Cell (WBC) Count 19.4 10x3/uL (3.5-10.5)
[2023-09-20 08:42] LABS: Anion Gap 14 mmol/L (10-20); BUN (Urea Nitrogen) 8 mg/dL (7.0-18.7); Calc. Creatinine Clearance 83 mL/min (70-130); Calcium 7.5 mg/dL (7.8-10.44); Carbon Dioxide 19 mmol/L (22-29); Chloride 105 mmol/L (98-107); Estimated GFR 94; Glucose 363 mg/dL (70-105); Potassium 3.6 mmol/L (3.5-5.1); Sodium 134 mmol/L (136-145)
[2023-09-20] MEDS ORDERED: Glucagon 1 MG/ML KIT IM PRN (09:22)
[2023-09-20] MEDS ORDERED: Dextrose 5% in Water 1,000 ML IV PRN (09:22)
[2023-09-20] MEDS ORDERED: Dextrose 50% Abboject 50 ML SYRINGE SLOW IVP PRN (09:22)
[2023-09-20] MEDS: Sodium Chloride 0.9% 1,000 ML IV SCH (09:25)
[2023-09-20] MEDS: Lantus 1000 UNITS/10 ML VIAL SC SCH (09:27)
[2023-09-20] MEDS ORDERED: Lantus 1000 UNITS/10 ML VIAL SC SCH (09:30)
[2023-09-20] MEDS: HumaLOG 300 UNITS/3 ML VIAL SC PRN (11:17)
[2023-09-20] MEDS: Ondansetron PF 4 MG/2 ML Vial IVP SCH (19:57)
[2023-09-21 03:15] LABS: #Eosinphils 0.1 10x3/uL (0.0-0.5); #Monocytes 1.2 10x3/uL (0.0-1.1); #Neutrophils 8.5 10x3/uL (1.5-8.4); %Basophils 0.3 % (0.0-2.0); %Eosinophils 0.5 % (0.0-6.0); %Lymphocytes 26.3 % (18.0-47.0); %Monocytes 8.7 % (0.0-10.0); %Neutrophils 63.7 % (40.0-75.0); Hematocrit 30.9 % (34.9-44.5); Hemoglobin 10.5 g/dL (12.0-15.5); Mean Corpuscular Volume 88.3 fl (81.6-98.3); Mean Platelet Volume 9.1 fl (7.4-10.4); Platelet Count 397 10x3/uL (150-450); RBC Distribution Width 14.4 % (11.5-14.5); White Blood Cell (WBC) Count 13.3 10x3/uL (3.5-10.5)
[2023-09-21 03:56] LABS: Anion Gap 12 mmol/L (10-20); BUN (Urea Nitrogen) 4 mg/dL (7.0-18.7); Calc. Creatinine Clearance 107 mL/min (70-130); Calcium 8.3 mg/dL (7.8-10.44); Carbon Dioxide 23 mmol/L (22-29); Chloride 107 mmol/L (98-107); Estimated GFR 117; Glucose 92 mg/dL (70-105); Magnesium 1.9 mg/dL (1.6-2.6); Phosphorus 2.9 mg/dL (2.3-4.7); Potassium 3.6 mmol/L (3.5-5.1); Sodium 138 mmol/L (136-145)
[2023-09-21] MEDS: Magnesium 2 GM/50 ML(in water) 2 GM in Premix 1 BAG IVPB SCH (08:10)
[2023-09-21] MEDS: Lantus 1000 UNITS/10 ML VIAL SC SCH (08:10)
[2023-09-21] MEDS: Ondansetron PF 4 MG/2 ML Vial IVP PRN (08:15)
[2023-09-21] MEDS: Meropenem 1 GM in Sodium Chloride 0.9% 100 ML IVPB SCH (08:29)
[2023-09-21] MEDS ORDERED: Electrolyte Replacement Protocol FS PRN (17:45)
[2023-09-22 05:57] LABS: Anion Gap 11 mmol/L (10-20); BUN (Urea Nitrogen) 7 mg/dL (7.0-18.7); Calc. Creatinine Clearance 102 mL/min (70-130); Calcium 8.8 mg/dL (7.8-10.44); Carbon Dioxide 26 mmol/L (22-29); Chloride 106 mmol/L (98-107); Estimated GFR 116; Glucose 203 mg/dL (70-105); Potassium 4.2 mmol/L (3.5-5.1); Sodium 139 mmol/L (136-145)
[2023-09-22 06:03] LABS: #Eosinphils 0.1 10x3/uL (0.0-0.5); #Monocytes 1.2 10x3/uL (0.0-1.1); #Neutrophils 4.6 10x3/uL (1.5-8.4); %Basophils 0.5 % (0.0-2.0); %Eosinophils 1.2 % (0.0-6.0); %Monocytes 13.4 % (0.0-10.0); %Neutrophils 51.7 % (40.0-75.0); Hematocrit 33.6 % (34.9-44.5); Hemoglobin 10.9 g/dL (12.0-15.5); Mean Corpuscular HGB CONC 32.4 g/dL (32.0-36.0); Mean Corpuscular Hemoglobin 28.6 pg (27.0-33.0); Mean Corpuscular Volume 88.2 fl (81.6-98.3); Mean Platelet Volume 9.3 fl (7.4-10.4); Platelet Count 428 10x3/uL (150-450); RBC Distribution Width 14.6 % (11.5-14.5); Red Blood Cell (RBC) Count 3.81 10x6/uL (3.90-5.03); White Blood Cell (WBC) Count 8.8 10x3/uL (3.5-10.5)
[2023-09-22] MEDS: Magnesium 2 GM/50 ML(in water) 2 GM in Premix 1 BAG IVPB SCH (09:29)
[2023-09-22 12:43] VITALS: BP 125/67; TEMP 98.4
== END 2023-09-22 14:00 | disposition home or self-care (01) | DRG 638 ==
LOC: CSHERS 13:28 → CSHERHOLD 17:17 → CSHIMCU 22:45 → CSHTELE 09-21 15:16
PROVIDERS: ADMIT Internal Medicine; ATTEND Internal Medicine
PROC: 06HY33Z Insertion of Infusion Device into Lower Vein, Percutaneous Approach (ICD-10-PCS; principal; 2023-09-19)
DX: E10.10 Type 1 diabetes mellitus with ketoacidosis without coma (principal); N17.9 Acute kidney failure, unspecified; E10.43 Type 1 diabetes mellitus with diabetic autonomic (poly)neuropathy; F17.210 Nicotine dependence, cigarettes, uncomplicated; E87.5 Hyperkalemia; D72.829 Elevated white blood cell count, unspecified; M79.81 Nontraumatic hematoma of soft tissue; N18.1 Chronic kidney disease, stage 1; E10.22 Type 1 diabetes mellitus with diabetic chronic kidney disease; Z98.51 Tubal ligation status; Z79.4 Long term (current) use of insulin; Z79.899 Other long term (current) drug therapy
CPT/HCPCS: 36415; 36416; 36556; 71045; 80048; 80053; 81001; 82010; 82805; 83735; 84100; 85025; 85060; 86704; 87040; 90935; 93005; 93010; 96374; 96375; 96376; 99292; G0257; J0696; J1815; J2185; J2272; J2405; J3475; J3480; J3490; J7050; J7611; J7999

== ENCOUNTER 2023-10-23 11:41 | Inpatient (IN) | payer OTHER, SELFPAY ==
[2023-10-23 12:25] LABS: Actual Bicarbonate (HCO3v) 3.2 mEq/L (22-28); Analyzer IN Cardio CS ER; Base Excess -29.8 mEq/L (-2 - +2); Calcium, Ionized (venous) 1.34 mmol/L (1.16-1.32); Chloride (VBG) 94 mmol/L (98-106); Hematocrit-VBG 38 % (36.0-47.0); Hemoglobin (Hb) 12.8 g/dL (11.7-15.5); Potassium (VBG) 6.65 mmol/L (3.70-5.30); Puncture Site Other Site; Sodium 127 mmol/L (133-146); pH (venous) 6.833 (7.32-7.43)
[2023-10-23] MEDS ORDERED: Ondansetron PF 4 MG/2 ML Vial ONE (12:38)
[2023-10-23] MEDS ORDERED: INSULIN REGULAR IN 0.9 % NACL 100 UNITS/100 ML BAG ONE (12:39)
[2023-10-23] MEDS ORDERED: Insulin Regular 300 UNITS/3 ML VIAL ONE (12:39)
[2023-10-23 12:42] LABS: Hematocrit 39.3 % (34.9-44.5); Hemoglobin 11.8 g/dL (12.0-15.5); MDiff Complete? YES; Mean Corpuscular Hemoglobin 29.7 pg (27.0-33.0); Mean Platelet Volume 9.8 fl (7.4-10.4); Platelet Count 675 10x3/uL (150-450); Red Blood Cell (RBC) Count 3.97 10x6/uL (3.90-5.03); White Blood Cell (WBC) Count 57.3 10x3/uL (3.5-10.5)
[2023-10-23 12:43] LABS: BHCG - Serum Negative (NEGATIVE); Pregs Control Background? CLEAR/WHITE (CLR/WHITE); Pregs Control Bar Appear? YES (CONTROL BAR)
[2023-10-23 13:02] LABS: ALT (SGPT) 30 U/L (8-55); AST (SGOT) 38 U/L (5-34); Albumin 3.6 g/dL (3.5-5.0); Alkaline Phosphatase 152 U/L (40-110); BUN (Urea Nitrogen) 31 mg/dL (7.0-18.7); Bilirubin, Total Less than 0.2 mg/dL (0.2-1.2); Calc. Creatinine Clearance 0 mL/min (70-130); Carbon Dioxide Less than 8 mmol/L (22-29); Chloride 93 mmol/L (98-107); Estimated GFR 32; Globulin 3.9 g/dL (2.4-3.5); Glucose Greater than 800 mg/dL (70-105); Lipase 56 U/L (8-78); Magnesium 3.5 mg/dL (1.6-2.6); Potassium 6.9 mmol/L (3.5-5.1); Protein, Total 7.5 g/dL (6.0-8.3); Sodium 122 mmol/L (136-145)
[2023-10-23 13:15] LABS: Band 5 % (5-11); Eosinophils 1 % (0-10); Lymphocytes 11 % (21-51); Metamyelocyte 3 % (0-0); Monocytes 4 % (0-10); Neutrophil 75 % (42-75); Reactive Lymphocytes 1 % (0-10)
[2023-10-23 13:27] LABS: Anisocytosis SLIGHT = 6-15 cells (100X) (0-5/hpf); Burr Cells SLIGHT = 2-5 cells (100X) (0-1/hpf); Ovalocytes SLIGHT = 2-5 cells (100X) (0-1/hpf); Poikilocytosis SLIGHT = 6-15 cells (100X) (0-5/hpf)
[2023-10-23 13:28] LABS: Platelet Adequacy Comment Appears Increased; Toxic Granulation SLIGHT; Vacuoles SLIGHT
[2023-10-23 13:31] LABS: Actual Bicarbonate (HCO3v) 2.9 mEq/L (22-28); Analyzer IN Cardio CS ER; Base Excess -30.5 mEq/L (-2 - +2); Calcium, Ionized (venous) 1.39 mmol/L (1.16-1.32); Chloride (VBG) 97 mmol/L (98-106); Hematocrit-VBG 39 % (36.0-47.0); Hemoglobin (Hb) 13.3 g/dL (11.7-15.5); Potassium (VBG) 6.72 mmol/L (3.70-5.30); Puncture Site Other Site; RapidComm Collect By LAB; Sodium 130 mmol/L (133-146); pH (venous) 6.817 (7.32-7.43)
[2023-10-23 14:22] LABS: Acetaminophen Less than 10 mcg/mL (10.0-30.0); Alcohol Less than 10.0 mg/dL (Less than 10); Salicylate Less than 8.0 mg/dL (15.0-30.0)
[2023-10-23 14:46] LABS: Reflex for Review?? YES
[2023-10-23 15:12] LABS: Glucose 660 mg/dL (70-105)
[2023-10-23] MEDS ORDERED: NS 0.9% w/ 20 MEQ KCL 1,000 ML IV PRN ×2 (15:17)
[2023-10-23] MEDS ORDERED: Electrolyte Replacement Protocol 1 EACH IVPB SCH (15:17)
[2023-10-23] MEDS ORDERED: Sodium Chloride 0.9% 1,000 ML IV PRN ×4 (15:17)
[2023-10-23 16:05] LABS: BUN (Urea Nitrogen) 29 mg/dL (7.0-18.7); Calc. Creatinine Clearance 0 mL/min (70-130); Calcium 9.7 mg/dL (7.8-10.44); Chloride 105 mmol/L (98-107); Estimated GFR 41; Potassium 5.2 mmol/L (3.5-5.1); Sodium 132 mmol/L (136-145)
[2023-10-23 16:09] LABS: Carbon Dioxide Less than 8 mmol/L (22-29); Glucose 486 mg/dL (70-105)
[2023-10-23] MEDS ORDERED: HYDROcodone/Acetaminophen 5/325 mg Tablet PO PRN (16:12)
[2023-10-23] MEDS ORDERED: Acetaminophen 325 MG TAB PO PRN (16:12)
[2023-10-23] MEDS ORDERED: Morphine 2 MG/ML VIAL SLOW IVP PRN (16:13)
[2023-10-23] MEDS: cefTRIAXone\\ROCEPHIN 2 GM in Sodium Chloride 0.9% 100 ML IVPB SCH (17:17)
[2023-10-23] MEDS: Dextrose 5 %-0.45 % NaCl 1,000 ML IV PRN (17:18)
[2023-10-23 18:48] LABS: Bilirubin Neg (Negative); Blood, Urine 25 (Negative); Clarity Clear (Clear); Glucose, Urine (Dipstick) >=1000 mg/dL (Negative); Ketone, Urine 150 mg/dL (Negative); Leukocyte Negative (Negative); Nitrite Negative (Negative); Protein, Urine (Dipstick) 30 mg/dl (Neg-Trace); Urobilinogen Normal mg/dL (Less than 2)
[2023-10-23 19:13] LABS: Bacteria/HPF 2+ HPF (None Seen); CAUTI Indications for Culture Dysuria,urgency,freq; Mucous/LPF 1+ LPF (<2+); RBC/HPF 0-3 HPF (0-3); Squamous Epithelial 0-3 HPF (0-3); WBC/HPF 0-3 HPF (0-3)
[2023-10-23 19:14] LABS: Urine Culture Reflex No No
[2023-10-23 19:32] LABS: #Basophils 0.06 10x3/uL (0.0-0.2); #Eosinphils 0.03 10x3/uL (0.0-0.5); #Monocytes 2.52 10x3/uL (0.0-1.1); #Neutrophils 26.47 10x3/uL (1.5-8.4); %Basophils 0.2 % (0.0-2.0); %Eosinophils 0.1 % (0.0-6.0); %Monocytes 7.2 % (0.0-10.0); %Neutrophils 75.5 % (40.0-75.0); Hemoglobin 11.8 g/dL (12.0-15.5); Mean Corpuscular HGB CONC 31.1 g/dL (32.0-36.0); Mean Corpuscular Hemoglobin 29.6 pg (27.0-33.0); Mean Corpuscular Volume 95.5 fl (81.6-98.3); Mean Platelet Volume 9.3 fl (7.4-10.4); Platelet Count 405 10x3/uL (150-450); RBC Distribution Width 13.9 % (11.5-14.5); Red Blood Cell (RBC) Count 3.98 10x6/uL (3.90-5.03)
[2023-10-23 19:45] LABS: Anion Gap 19 mmol/L (10-20); BUN (Urea Nitrogen) 21 mg/dL (7.0-18.7); Calc. Creatinine Clearance 56 mL/min (70-130); Calcium 9.1 mg/dL (7.8-10.44); Chloride 109 mmol/L (98-107); Estimated GFR 58; Glucose 141 mg/dL (70-105); Potassium 4.3 mmol/L (3.5-5.1); Sodium 132 mmol/L (136-145)
[2023-10-23 19:52] LABS: Carbon Dioxide 8 mmol/L (22-29)
[2023-10-23] MEDS: Dextrose 50% Abboject 50 ML SYRINGE SLOW IVP PRN (20:25)
[2023-10-23] MEDS: Ondansetron PF 4 MG/2 ML Vial IVP PRN (22:02)
[2023-10-24 00:23] LABS: Anion Gap 15 mmol/L (10-20); BUN (Urea Nitrogen) 14 mg/dL (7.0-18.7); Calc. Creatinine Clearance 62 mL/min (70-130); Calcium 8.6 mg/dL (7.8-10.44); Carbon Dioxide 13 mmol/L (22-29); Chloride 110 mmol/L (98-107); Estimated GFR 65; Glucose 165 mg/dL (70-105); Potassium 4.1 mmol/L (3.5-5.1); Sodium 134 mmol/L (136-145)
[2023-10-24 03:33] LABS: Hematocrit 32.5 % (34.9-44.5); Hemoglobin 11.1 g/dL (12.0-15.5); Mean Corpuscular HGB CONC 34.2 g/dL (32.0-36.0); Mean Corpuscular Hemoglobin 29.7 pg (27.0-33.0); Mean Corpuscular Volume 86.9 fl (81.6-98.3); Platelet Count 435 10x3/uL (150-450); RBC Distribution Width 13.8 % (11.5-14.5); Red Blood Cell (RBC) Count 3.74 10x6/uL (3.90-5.03); White Blood Cell (WBC) Count 28.6 10x3/uL (3.5-10.5)
[2023-10-24 03:34] LABS: MDiff Complete? YES
[2023-10-24 03:59] LABS: Anion Gap 12 mmol/L (10-20); BUN (Urea Nitrogen) 11 mg/dL (7.0-18.7); Calc. Creatinine Clearance 69 mL/min (70-130); Calcium 8.7 mg/dL (7.8-10.44); Carbon Dioxide 14 mmol/L (22-29); Chloride 110 mmol/L (98-107); Estimated GFR 74; Glucose 191 mg/dL (70-105); Potassium 3.8 mmol/L (3.5-5.1); Sodium 132 mmol/L (136-145)
[2023-10-24 04:49] LABS: Band 6 % (5-11); Lymphocytes 4 % (21-51); Monocytes 5 % (0-10); Neutrophil 85 % (42-75)
[2023-10-24 04:56] LABS: Hypochromia SLIGHT = 6-15 cells (100X) (0-5/hpf); Microcytosis SLIGHT = 6-15 cells (100X) (0-5/hpf)
[2023-10-24 04:57] LABS: Platelet Adequacy Comment Appears Adequate
[2023-10-24] MEDS: INSULIN REGULAR IN 0.9 % NACL 100 UNITS in Premix 1 BAG IVPB SCH (05:48)
[2023-10-24] MEDS: D5 1/2 NS w/20 mEq KCL 1,000 ML IV PRN (05:50)
[2023-10-24] MEDS: Enoxaparin 40 MG (0.4 mL) SYRINGE SC SCH (08:44)
[2023-10-24] MEDS ORDERED: Dextrose 5% in Water 1,000 ML IV PRN (09:57)
[2023-10-24] MEDS ORDERED: Dextrose 50% Abboject 50 ML SYRINGE SLOW IVP PRN (09:57)
[2023-10-24] MEDS ORDERED: HumaLOG 300 UNITS/3 ML VIAL SC PRN (09:57)
[2023-10-24] MEDS ORDERED: Glucagon 1 MG/ML KIT IM PRN (09:57)
[2023-10-24] MEDS: Lantus 1000 UNITS/10 ML VIAL SC SCH ×2 (10:45→20:55)
[2023-10-24] MEDS: Famotidine 20 MG TAB PO SCH ×2 (10:46→21:09)
[2023-10-24] MEDS: HumaLOG 300 UNITS/3 ML VIAL SC PRN (16:53)
[2023-10-24] MEDS: Lorazepam 0.5 MG TAB PO SCH (21:09)
[2023-10-25 04:14] LABS: Anion Gap 11 mmol/L (10-20); BUN (Urea Nitrogen) 4 mg/dL (7.0-18.7); Calc. Creatinine Clearance 102 mL/min (70-130); Calcium 8.6 mg/dL (7.8-10.44); Carbon Dioxide 20 mmol/L (22-29); Chloride 111 mmol/L (98-107); Estimated GFR 114; Glucose 119 mg/dL (70-105); Sodium 139 mmol/L (136-145)
[2023-10-25 04:16] LABS: #Basophils 0.04 10x3/uL (0.0-0.2); #Eosinphils 0.01 10x3/uL (0.0-0.5); #Monocytes 1.08 10x3/uL (0.0-1.1); #Neutrophils 8.72 10x3/uL (1.5-8.4); %Basophils 0.3 % (0.0-2.0); %Eosinophils 0.1 % (0.0-6.0); %Lymphocytes 26.3 % (18.0-47.0); %Neutrophils 64.8 % (40.0-75.0); Hematocrit 32.7 % (34.9-44.5); Mean Corpuscular HGB CONC 33.6 g/dL (32.0-36.0); Mean Corpuscular Hemoglobin 29.2 pg (27.0-33.0); Mean Corpuscular Volume 86.7 fl (81.6-98.3); Mean Platelet Volume 9.1 fl (7.4-10.4); Platelet Count 418 10x3/uL (150-450); RBC Distribution Width 14.7 % (11.5-14.5); Red Blood Cell (RBC) Count 3.77 10x6/uL (3.90-5.03); White Blood Cell (WBC) Count 13.5 10x3/uL (3.5-10.5)
[2023-10-25 04:48] VITALS: TEMP 98.2
[2023-10-25 06:47] VITALS: BP 120/72
[2023-10-25 09:51] VITALS: BMI 20.9
[2023-10-25] MEDS: Lorazepam 0.5 MG TAB PO SCH (10:58)
[2023-10-25] MEDS: Potassium Bicarbonate/Cit Ac 20 MEQ TAB PO SCH (10:59)
[2023-10-25] MEDS ORDERED: Lorazepam 0.5 MG TAB PO SCH (21:00)
== END 2023-10-25 14:00 | disposition home or self-care (01) | DRG 638 ==
LOC: CSHERS 11:41 → CSHICU 13:51
PROVIDERS: ADMIT Internal Medicine; ATTEND Family Medicine
DX: E10.10 Type 1 diabetes mellitus with ketoacidosis without coma (principal); E87.1 Hypo-osmolality and hyponatremia; N17.9 Acute kidney failure, unspecified; F41.9 Anxiety disorder, unspecified; E87.5 Hyperkalemia; E86.0 Dehydration; N18.2 Chronic kidney disease, stage 2 (mild); D64.9 Anemia, unspecified; D72.829 Elevated white blood cell count, unspecified; Z79.4 Long term (current) use of insulin; Z79.899 Other long term (current) drug therapy
CPT/HCPCS: 36415; 36416; 71045; 80048; 80053; 80307; 81001; 82010; 82805; 83690; 83735; 84703; 85025; 85060; 87040; 93005; 93010; 96374; 96375; J0696; J1650; J1815; J2405; J3480; J3490; J7042; J7999